=== PATIENT | female | born 1925 ===

== ENCOUNTER → 2016-10-28 09:03 | Emergency (ER) | payer MEDICARE, OTHER, MEDICAID ==
--- NOTE | 2016-10-28 11:32 | ED ---
Lower Extremity - HPI Summary HPI Summary: 89F presents with left hip pain s/p mechanical fall today. She was trying to get out of bed with assistance and she feel onto her left hip. She denies any chest pain or SOB. She has not ambulate since. She is unsteady on her feet at baseline and gets around with a walker. She denies any head injury or LOC. She states that her left knee also hurts. She denies any UTI symptoms. She has had a previous hip fracture but is unsure what hip. - History of Current Complaint Chief Complaint: EDExtremityLower Stated Complaint: FALL Time Seen by Provider: 10/28/16 10:47 Pain Intensity: 0 - Allergies/Home Medications Allergies/Adverse Reactions: Allergies Allergy/AdvReac Type Severity Reaction Status Date / Time Amoxicillin [From Augmentin] Allergy Unknown Verified 10/28/16 11:55 Reaction Details Aspirin Allergy Unknown Verified 10/28/16 11:55 Reaction Details Clavulanic Acid Allergy Unknown Verified 10/28/16 11:55 [From Augmentin] Reaction Details Rabeprazole [From Aciphex] Allergy Unknown Verified 10/28/16 11:55 Reaction Details Sucralfate [From Carafate] Allergy Unknown Verified 10/28/16 11:55 Reaction Details Home Medications: Home Medications Acetaminophen TAB* [Tylenol TAB*] 1,000 mg PO Q6H PRN 10/28/16 [History Confirmed 10/28/16] Artificial Tears* 15 ML BTL [Polyvinyl Alcohol 1.4% OPTH*] 2 drop BOTH EYES TID PRN 10/28/16 [History Confirmed 10/28/16] Miralax* 17 gm PO DAILY 10/28/16 [History Confirmed 10/28/16] Omeprazole CAP* [Prilosec CAP* 20 MG] 1 tab PO DAILY 10/28/16 [History Confirmed 10/28/16] Senna TAB* [Senokot TAB*] 2 tab PO BID 10/28/16 [History Confirmed 10/28/16] Venlafaxine EXT RELEASE CAP* [Effexor Xr CAP*] 150 mg PO BEDTIME 10/28/16 [ History Confirmed 10/28/16] PMH/Surg Hx/FS Hx/Imm Hx Endocrine/Hematology History: Denies: Hx Diabetes Cardiovascular History: Reports: Hx Hypertension Neurological History: Reports: Hx Dementia Infectious Disease History: No Infectious Disease History: Denies: Traveled Outside the [place] in Last 30 Days - Family History Known Family History: Positive: Hypertension - Social History Alcohol Use: None Substance Use Type: Reports: None Smoking Status (MU): Never Smoked Tobacco Review of Systems Negative: Fever Negative: Chest Pain Negative: Shortness Of Breath Positive: Myalgia - left hip pain All Other Systems Reviewed And Are Negative: Yes Physical Exam Triage Information Reviewed: Yes Vital Signs On Initial Exam: Initial Vitals Temp Pulse Resp BP Pulse Ox 98.1 F 74 16 139/61 97 10/28/16 09:03 10/28/16 09:03 10/28/16 09:03 10/28/16 09:03 10/28/16 09:03 Vital Signs Reviewed: Yes Appearance: Positive: Well-Appearing Skin: Positive: Warm, Dry Head/Face: Positive: Normal Head/Face Inspection Eyes: Positive: Normal, EOMI, PING, Conjunctiva Clear ENT: Positive: Normal ENT inspection, Pharynx normal, TMs normal Respiratory/Lung Sounds: Positive: Clear to Auscultation, Breath Sounds Present Cardiovascular: Positive: Normal, RRR Musculoskeletal: Positive: Limited @ - hip and knee, Other - tender over left hip and knee, good pulses, capillary refill< 2 secs, full ROM ankle Diagnostics - Vital Signs Vital Signs Temp Pulse Resp BP Pulse Ox 10/28/16 09:39 98.7 F 93 16 134/54 99 10/28/16 09:03 98.1 F 74 16 139/61 97 - Laboratory Result Diagrams: 10/28/16 11:35 10/28/16 11:35 Lab Statement: Any lab studies that have been ordered have been reviewed, and results considered in the medical decision making process. - Radiology hip Xray Interpretation: No Acute Changes Radiology Interpretation Completed By: Radiologist knee Xray Interpretation: No Acute Changes Radiology Interpretation Completed By: Radiologist - CT hip CT Interpretation: No Acute Changes CT Interpretation Completed By: Radiologist Lower Extremity Course/Dx - Course Course Of Treatment: 89F presents with left hip pain s/p mechanical fall today. She was trying to get out of bed with assistance and she feel onto her left hip. She denies any chest pain or SOB. She has not ambulate since. She is unsteady on her feet at baseline and gets around with a walker. She denies any head injury or LOC. She states that her left knee also hurts. on exam tender over left hip and knee. xray hip and knee normal so got CT to be sure and CT normal hip. labs normal. told to ice area. patient understands and agrees with plan - Diagnoses Differential Diagnosis/HQI/PQRI: Positive: Contusion, Fracture (Closed), Sprain , Strain Provider Diagnoses: Left hip pain Discharge - Discharge Plan Condition: Good Disposition: HOME Patient Education Materials: Hip Pain (ED) Referrals: Chelly Whelan MD [Primary Care Provider] - Additional Instructions: Ice and rest the area Take Tylenol for pain Follow up with primary in a week Return to ED if develop any new or worsening symptoms
--- NOTE | 2016-10-28 11:33 | RAD ---
INDICATION: Left hip pain. Fall. COMPARISON: None TECHNIQUE: An AP view of the pelvis and AP views of the both hips in neutral and abducted left hip image was obtained. FINDINGS: Bones: There are no acute bony findings. There is osteopenia. Joint spaces: There is mild age-related osteoarthritis about each hip. SI joints/symphysis: The SI joints and symphysis are intact. Other: There are extensive aortic calcifications. IMPRESSION: NO PLAIN RADIOGRAPHIC ABNORMALITIES.
--- NOTE | 2016-10-28 11:34 | RAD ---
INDICATION: Left knee pain COMPARISON: None TECHNIQUE: AP, lateral, tunnel, and sunrise views were obtained. FINDINGS: There is osteopenia. There is moderate narrowing about the medial joint space compartment. There is spurring about the lateral joint space compartment. There is minor patellofemoral disease. There are early findings of chondrocalcinosis. There is no joint effusion. There are vascular microcalcifications. IMPRESSION: OSTEOARTHRITIS. NO ACUTE CHANGE.
[2016-10-28 11:50] LABS: Hematocrit 45 % (35-47); Hemoglobin 14.6 g/dl (12.0-16.0); Mean Corpuscular HGB Conc 32 g/dl (31-36); Mean Corpuscular Hemoglobin 28 pg (27-31); Mean Corpuscular Volume 88 fL (80-97); Mean Platelet Volume 9 um3 (7.4-10.4); Red Blood Count 5.14 10^6/ul (4.0-5.4); Red Cell Distribution Width 17 % (10.5-15); White Blood Count 8.4 10^3/ul (3.5-10.8)
[2016-10-28 12:05] LABS: Albumin 3.8 g/dL (3.2-5.2); BUN/Creatinine Ratio 23.1 (8-20); Calcium 9.5 mg/dL (8.6-10.3); EGFR African American 110.4 (>60); EGFR Non-African American 85.8 (>60); Globulin 3.1 g/dL (2-4); Potassium 4.2 mmol/L (3.5-5.0); Total Bilirubin 0.5 mg/dL (0.2-1.0); Total Protein 6.9 g/dL (6.4-8.9)
[2016-10-28 12:20] LABS: Urine Bilirubin Negative (Negative); Urine Glucose Negative (Negative); Urine Nitrite Negative (Negative)
--- NOTE | 2016-10-28 12:48 | RAD ---
INDICATION: Left hip injury COMPARISON: Left hip same date TECHNIQUE: Noncontrast axial source images were obtained from the iliac crests through the symphysis pubis. FINDINGS: There are no CT abnormalities of the bony pelvis. The bony structures are are noted to be very osteopenic. There is mild symmetric narrowing about both hip joint spaces. There is degenerative change about the lumbar spine with multilevel degenerative disc disease and a levoscoliosis The uterus and adnexa are normal.. No free fluid or adenopathy is seen. There are extensive aortic calcifications The noncontrast CT appearance of the bowel is unremarkable. The superficial soft tissues are remarkable for injection granulomas in the gluteal regions bilaterally. The bladder appears normal. The caudal most image shows a renal calcification. This could be in the calyx or be vascular. IMPRESSION: NO CT EVIDENCE OF ACUTE HIP FRACTURE
[2016-10-28 13:54] VITALS: BP 143/66
== END | disposition home or self-care (01) ==
LOC: ED 09:03
DX: M25.552 Pain in left hip (principal)
CPT/HCPCS: 36415; 72192; 80053; 81003; 83605; 85025; 85610; 85730; 86850; 86900; 86901; 93005; 99283